=== PATIENT | female | born 1970 | race Caucasian/White ===

== ENCOUNTER 2016-10-16 18:04 | Emergency (ER) | payer OTHER ==
[~2016-10-16] VITALS: Ht 160 cm; Wt 72.0 kg
[~2016-10-16 18:04] MED LIST: NAPR-576 PO
--- NOTE | 2016-10-16 18:16 | PD ---
HPI Chief Complaint: ma Time Seen by Provider: 18:16 Travel History International Travel<30 days: No Contact w/Intl Traveler<30days: No Traveled to known affect area: No History of Present Illness HPI 46 year-old female presents to the emergency department under [place]. Patient has been drinking alcohol today, states "a lot" and was found unable to stand near the street. Patient at this time denies any suicidal homicidal ideations. Denies any illicit drug use. Denies any acute medical needs. Is requesting to go home. PFSH Past Medical History Arthritis: No Asthma: No Autoimmune Disease: No Anxiety: Yes Depression: Yes Heart Rhythm Problems: No Cancer: No Cardiovascular Problems: No High Cholesterol: No Chemotherapy: No Chest Pain: No Congestive Heart Failure: No COPD: No Cerebrovascular Accident: No Diabetes: No Endocrine: No GERD: Yes Genitourinary: No Hiatal Hernia: No Immune Disorder: No Implanted Vascular Access Dvce: Yes Kidney Stones: No Musculoskeletal: No Neurologic: No Psychiatric: Yes Reproductive: Yes Respiratory: No Immunizations Current: Yes Migraines: No Radiation Therapy: No Renal Failure: No Seizures: Yes Sickle Cell Disease: No Sleep Apnea: No Thyroid Disease: No Ulcer: No Past Surgical History Abdominal Surgery: No AICD: No Arteriovenous Shunt: No Body Medical Devices: ORIF LEFT WRIST Cardiac Surgery: No Section: Yes Ear Surgery: No Endocrine Surgery: No Eye Surgery: No Genitourinary Surgery: No Gynecologic Surgery: Yes (C SECTION ) Insulin Pump: No Joint Replacement: No Oral Surgery: No Pacemaker: No Thoracic Surgery: No Other Surgery: Yes Social History Alcohol Use: Yes Tobacco Use: Yes Substance Use: No Allergies-Medications (Allergen,Severity, Reaction): Coded Allergies: No Known Allergies (Unverified , 09/12/15) Reported Meds & Prescriptions Reported Meds & Active Scripts Active Naproxen 500 Mg Tab 500 Mg PO Q12HR PRN Review of Systems ROS Limitations: Intoxication Except as stated in HPI: all other systems reviewed are Neg Physical Exam Exam Limitations: Intoxication Narrative GENERAL: Well-nourished, well-developed male patient, clinically intoxicated with slurred speech and unsteady gait, but in no acute distress. SKIN: Focused skin assessment warm/dry. HEAD: Normocephalic. EYES: No scleral icterus. No injection or drainage. NECK: Supple, trachea midline. No JVD or lymphadenopathy. CARDIOVASCULAR: Elevated rate and rhythm without murmurs, gallops, or rubs. RESPIRATORY: Breath sounds equal bilaterally. No accessory muscle use. GASTROINTESTINAL: Abdomen soft, non-tender, nondistended. MUSCULOSKELETAL: No cyanosis, or edema. BACK: Nontender without obvious deformity. No CVA tenderness. Data Data Last Documented VS Vital Signs Date Time Temp Pulse Resp B/P Pulse Ox O2 Delivery O2 Flow Rate FiO2 10/16/16 18:26 98.3 100 16 125/75 96 Orders Complete Blood Count With Diff (10/16/16 18:10) Basic Metabolic Panel (Bmp) (10/16/16 18:10) Drug Screen, Random Urine (10/16/16 18:10) Alcohol (Ethanol) (10/16/16 18:10) Labs Laboratory Tests Test 10/16/16 10/16/16 17:45 18:48 Urine Opiates Screen NEG Urine Barbiturates Screen NEG Urine Amphetamines Screen NEG Urine Benzodiazepines Screen NEG Urine Cocaine Screen NEG Urine Cannabinoids Screen NEG White Blood Count 4.7 TH/MM3 Red Blood Count 4.29 MIL/MM3 Hemoglobin 11.8 GM/DL Hematocrit 36.7 % Mean Corpuscular Volume 85.7 FL Mean Corpuscular Hemoglobin 27.4 PG Mean Corpuscular Hemoglobin 32.0 % Concent Red Cell Distribution Width 19.5 % Platelet Count 284 TH/MM3 Mean Platelet Volume 7.5 FL Neutrophils (%) (Auto) 61.1 % Lymphocytes (%) (Auto) 21.8 % Monocytes (%) (Auto) 14.7 % Eosinophils (%) (Auto) 0.6 % Basophils (%) (Auto) 1.8 % Neutrophils # (Auto) 2.9 TH/MM3 Lymphocytes # (Auto) 1.0 TH/MM3 Monocytes # (Auto) 0.7 TH/MM3 Eosinophils # (Auto) 0.0 TH/MM3 Basophils # (Auto) 0.1 TH/MM3 CBC Comment DIFF FINAL Differential Comment Sodium Level 139 MEQ/L Potassium Level 3.3 MEQ/L Chloride Level 104 MEQ/L Carbon Dioxide Level 25.7 MEQ/L Anion Gap 9 MEQ/L Blood Urea Nitrogen 6 MG/DL Creatinine 0.61 MG/DL Estimat Glomerular Filtration 107 ML/MIN Rate Random Glucose 89 MG/DL Calcium Level 8.6 MG/DL Ethyl Alcohol Level 340 MG/DL MDM Medical Decision Making Medical Screen Exam Complete: Yes Emergency Medical Condition: Yes Medical Record Reviewed: Yes Differential Diagnosis Intoxication versus sepsis versus versus mood disorder versus personality disorder Narrative Course 46 year-old female presents to emergency department. Kody mendieta. Patient is clinically intoxicated. She does admit to drinking large amount of alcohol today. Vital signs are stable. CBC and BMP are without acute concern. Mild hypokalemia 3.3. Toxicology is negative. EtOH is 340. Patient will be monitored until he is clinically sober at which time she'll be discharged home [id number] informed the patient has a safe mode of transportation home. Pt will be discharged upon their arrival. Diagnosis Primary Impression: Alcohol intoxication Qualified Code: F10.929 - Alcohol intoxication, with unspecified complication Referrals: [facility] (Out patient) Patient Instructions: Abuse of Alcohol (ED), General Instructions Additional Instructions: Consume alcohol in moderation Follow-up with a primary care provider Return immediately with any acute worsening of symptoms Med/Other Pt SpecificInfo: No Change to Meds Disposition: 01 DISCHARGE HOME Condition: Stable [facility] Oct 16, 2016 18:16
[2016-10-16 18:26] VITALS: BP 125/75; PULSE 100; RESP 16; TEMP 98.3; O2SAT 96
[2016-10-16 19:41] LABS: AUTOMATED NEUTROPHIL # 2.9 TH/MM3 (1.8-7.7); BASOPHIL # 0.1 TH/MM3 (0-0.2); BASOPHIL % 1.8 % (0.0-2.0); EOSINOPHIL % 0.6 % (0.0-4.0); HEMATOCRIT 36.7 % (35.0-46.0); HEMO FLAGS DIFF FINAL; LYMPH % 21.8 % (9.0-44.0); MEAN CELL VOLUME 85.7 FL (80.0-100.0); MEAN CORPUSCULAR HEMOGLOBIN 27.4 PG (27.0-34.0); MONO % 14.7 % (0.0-8.0); NEUT % 61.1 % (16.0-70.0); PLATELET COUNT 284 TH/MM3 (150-450); RED BLOOD COUNT 4.29 MIL/MM3 (4.00-5.30); RED CELL DISTRIBUTION WIDTH 19.5 % (11.6-17.2); WHITE BLOOD COUNT 4.7 TH/MM3 (4.0-11.0)
[2016-10-16 20:03] LABS: AMPHETAMINE, URINE NEG (NEG); BARBITURATES, URINE NEG (NEG); COCAINE, URINE NEG (NEG)
[2016-10-16 20:04] LABS: BICARBONATE 25.7 MEQ/L (21.0-32.0); POTASSIUM 3.3 MEQ/L (3.5-5.1)
== END 2016-10-16 23:45 | disposition home or self-care (01) ==
LOC: NEDAMB 18:04
DX: F10.929 Alcohol use, unspecified with intoxication, unspecified (principal); F41.8 Other specified anxiety disorders; Z72.0 Tobacco use; Y90.8 Blood alcohol level of 240 mg/100 ml or more
CPT/HCPCS: 80048; 80307; 85025; 99283